=== PATIENT | female | born 1960 | race Two or more races ===

== ENCOUNTER 2018-02-14 13:17 | Outpatient (CLI) | payer OTHER ==
[~2018-02-14 13:17] MED LIST: ALTACE10 MG; HYDROCHLOROTH12.5 M1
== END 2018-02-14 13:22 | disposition home or self-care (01) ==
LOC: MAMO-SONO 13:17
DX: Z12.39 Encounter for other screening for malignant neoplasm of breast (principal); Z12.31 Encounter for screening mammogram for malignant neoplasm of breast

== ENCOUNTER 2018-02-23 13:56 | Outpatient (CLI) | payer OTHER | END 2018-02-23 15:00 | disposition home or self-care (01) | LOC: NUCLEAR 13:56 | DX: Z13.820 Encounter for screening for osteoporosis (principal); M81.0 Age-related osteoporosis without current pathological fracture ==

== ENCOUNTER → 2018-02-24 | Outpatient (CLI) | payer OTHER | END | disposition home or self-care (01) | LOC: SONOGRAMA 08:15 | DX: N25.9 Disorder resulting from impaired renal tubular function, unspecified (principal); N85.00 Endometrial hyperplasia, unspecified; N60.19 Diffuse cystic mastopathy of unspecified breast; Z12.31 Encounter for screening mammogram for malignant neoplasm of breast; R10.13 Epigastric pain; E04.9 Nontoxic goiter, unspecified ==

== ENCOUNTER 2019-12-01 13:20 | Inpatient (IN) | payer OTHER ==
[~2019-12-01] VITALS: Ht 162.6 cm; Wt 58.1 kg
[2019-12-01] MEDS ORDERED: TOPROL XL50 M1 PO (13:34)
[2019-12-01] MEDS ORDERED: LOSARTAN-HCTZ1 EACH PO (13:34)
--- NOTE | 2019-12-01 13:35 | NUR ---
FEMINA DE 59 ANOS DE EDAD REFIERE DOLOR ABDOMINAL DESDE LA MADRUGADA. SE OBSERVA ALERTA, ORIENTADA X3, CONCIENTE Y ABDOMEN BLANDO AL TACTO.
--- NOTE | 2019-12-01 13:54 | NUR ---
SE EDUCA A PTE SOBRE TX MEDICO ESTA REFIERE ENTENDER. PSE LARA MUESTRAS DE LAB UTILIZANDO MEDIDAS ASEPTICAS. SE COLOCA H/L A PTE Y SE DAVID CONTRASTE PO A PTE Y SE NOTIFICA ESTUDIO DE CT PENDIENTE A REALIZAR. PTE DSE CONTINUA MONITORIANDO.
--- NOTE | 2019-12-01 16:34 | NUR ---
SE ORIENTA SOBRE EL TX. SE EXTRAEN MUESTTRAS DE [place] BAJO MEDIDAS ASEPTICAS SE ROTULAN Y ENVIAN AL LABORATORIO. SE ADMINISTRA MEDICAMENTO MARISA ORDEN MEDICA.
[2019-12-04] MEDS ORDERED: PERCOCET 5-3251 EACH PO (14:07)
== END 2019-12-04 14:37 | DRG 342 ==
LOC: ER 13:20 → O/R 17:27 → SEC-K 17:27 → SURG-SUITE 17:27 → O/R 17:57 → SURG-SUITE 20:22
PROVIDERS: ADMIT Surgery
PROC: BW21ZZZ Computerized Tomography (CT Scan) of Abdomen and Pelvis (ICD-10-PCS; 2019-12-01)
PROC: 0DTJ4ZZ Resection of Appendix, Percutaneous Endoscopic Approach (ICD-10-PCS; principal; 2019-12-01 18:00)
PROC: B246ZZZ Ultrasonography of Right and Left Heart (ICD-10-PCS; 2019-12-03)
DX: K35.890 Other acute appendicitis without perforation or gangrene (principal); I97.191 Other postprocedural cardiac functional disturbances following other surgery; I95.81 Postprocedural hypotension

== ENCOUNTER → 2020-07-07 | Emergency (ER) | payer OTHER ==
[~2020-07-07] VITALS: Ht 162.6 cm; Wt 59.9 kg
[~2020-07-07] MED LIST changes: +LOSARTAN-HCTZ1 EACH PO; +PERCOCET 5-3251 EACH PO; +TOPROL XL50 M1 PO
== END | disposition left against medical advice (07) ==
LOC: ER 17:09
DX: Z53.20 Procedure and treatment not carried out because of patient's decision for unspecified reasons (principal)

== ENCOUNTER 2020-08-27 10:42 | Outpatient (CLI) | payer OTHER | END 2020-08-27 10:43 | disposition home or self-care (01) | LOC: MAMO-SONO 10:42 | PROVIDERS: ATTEND Obstetrics & Gynecology | DX: Z12.31 Encounter for screening mammogram for malignant neoplasm of breast (principal); N60.11 Diffuse cystic mastopathy of right breast; N60.12 Diffuse cystic mastopathy of left breast ==

== ENCOUNTER 2022-11-26 13:15 | Outpatient (CLI) | payer OTHER | END 2022-11-26 13:16 | disposition home or self-care (01) | LOC: NUCLEAR 13:15 | PROVIDERS: ATTEND Obstetrics & Gynecology | DX: M81.0 Age-related osteoporosis without current pathological fracture (principal) ==

== ENCOUNTER → 2022-11-26 | Outpatient (CLI) | payer OTHER | END | disposition home or self-care (01) | LOC: MAMO-SONO 08:16 | PROVIDERS: ATTEND Obstetrics & Gynecology | DX: N60.11 Diffuse cystic mastopathy of right breast (principal); N60.12 Diffuse cystic mastopathy of left breast ==

== ENCOUNTER 2023-04-09 06:57 | Outpatient (CLI) | payer OTHER ==
[~2023-04-09] VITALS: Ht 162.6 cm; Wt 59.0 kg
== END 2023-04-09 06:58 | disposition home or self-care (01) ==
LOC: LAB 06:57
PROVIDERS: ATTEND Urology
DX: I11.0 Hypertensive heart disease with heart failure (principal); N39.0 Urinary tract infection, site not specified

== ENCOUNTER 2023-04-13 07:52 | Outpatient (CLI) | payer OTHER ==
[2023-04-13] MEDS ORDERED: IRBESARTAN-HCT1 EACH PO (14:20)
[2023-04-13] MEDS ORDERED: FOSAMAX70 MG PO (14:21)
[2023-04-13] MEDS ORDERED: ATORVASTATIN CA10 MG PO (14:21)
== END 2023-04-13 07:54 | disposition home or self-care (01) ==
LOC: RAD 07:52
PROVIDERS: ATTEND Urology
DX: N20.0 Calculus of kidney (principal)

== ENCOUNTER 2023-04-14 05:30 | Day surgery (SDC) | payer OTHER ==
[~2023-04-14 05:30] MED LIST changes: +ATORVASTATIN CA10 MG PO; +FOSAMAX70 MG PO; +IRBESARTAN-HCT1 EACH PO
== END 2023-04-14 16:25 | disposition home or self-care (01) ==
LOC: CIR.AMB 05:30
PROVIDERS: ATTEND Urology
DX: N20.1 Calculus of ureter (principal); Z20.822 Contact with and (suspected) exposure to COVID-19

== ENCOUNTER 2023-04-20 07:03 | Outpatient (CLI) | payer OTHER | END 2023-04-20 07:10 | disposition home or self-care (01) | LOC: RAD 07:03 | PROVIDERS: ATTEND Urology | DX: N20.1 Calculus of ureter (principal) ==

== ENCOUNTER → 2023-04-22 | Outpatient (CLI) | payer OTHER | END | disposition home or self-care (01) | LOC: LAB 15:03 | PROVIDERS: ATTEND Urology | DX: N39.0 Urinary tract infection, site not specified (principal) ==

== ENCOUNTER 2023-06-11 09:00 | Outpatient (CLI) | payer OTHER | END 2023-06-11 09:01 | disposition home or self-care (01) | LOC: LAB 09:00 | PROVIDERS: ATTEND Urology | DX: N20.1 Calculus of ureter (principal) ==

== ENCOUNTER 2024-05-17 14:44 | Outpatient (CLI) | payer OTHER | END 2024-05-17 15:07 | disposition home or self-care (01) | LOC: RAD 14:44 | PROVIDERS: ATTEND Internal Medicine Pulmonary Disease | DX: J45.30 Mild persistent asthma, uncomplicated (principal); R05.3 Chronic cough ==

== ENCOUNTER 2025-04-26 14:51 | Outpatient (CLI) | payer OTHER | END 2025-04-26 14:56 | disposition home or self-care (01) | LOC: MAMO-SONO 14:51 | PROVIDERS: ATTEND Internal Medicine | DX: N64.4 Mastodynia (principal); Z12.31 Encounter for screening mammogram for malignant neoplasm of breast ==

== ENCOUNTER 2025-07-27 09:54 | Outpatient (CLI) | payer OTHER | END 2025-07-27 09:55 | disposition home or self-care (01) | LOC: NUCLEAR 09:54 | PROVIDERS: ATTEND Internal Medicine | DX: M81.0 Age-related osteoporosis without current pathological fracture (principal) ==